=== PATIENT | male | born 1935 | race Caucasian/White ===

== ENCOUNTER 2021-01-01 09:28 | Outpatient (REF) | payer MEDICARE, MEDICAID, SELFPAY ==
[2021-01-01 10:25] LABS: Anion Gap 15 (12-20); Blood Urea Nitrogen 14 mg/dL (9-16); Calcium 9.5 mg/dL (8.4-10.2); Carbon Dioxide 26 mmol/L (22-29); Chloride 103 mmol/L (96-108); Estimated Glomerular Filt Rate 59; Glucose Random 138 mg/dL (60-115); Potassium 4.6 mmol/L (3.3-5.1); Sodium 139 mmol/L (135-145)
[2021-01-01 11:06] LABS: Thyroid Stimulating Hormone 0.93 uIU/mL (0.32-4.0)
[2021-01-01 11:13] LABS: Folate > 20.0 ng/mL (> or = 4.0); Vitamin B12 335 pg/mL (200-900)
[2021-01-01 11:38] LABS: T4 Thyroxine 7.4 ug/dL (4.5-12.0)
== END 2021-01-01 09:29 | disposition home or self-care (01) ==
LOC: HO.LAB 09:28
PROVIDERS: PCP Internal Medicine; Visit Provider Psychiatry & Neurology Neurology
DX: G30.9 Alzheimer's disease, unspecified (principal)
CPT/HCPCS: 36415; 80048; 82607; 82746; 84436; 84443

== ENCOUNTER 2021-01-19 08:32 | Outpatient (REF) | payer MEDICARE, MEDICAID, SELFPAY ==
--- NOTE | ~2021-01-19 | CT_ITS ---
EXAMINATION: CT HEAD WITHOUT CONTRAST CLINICAL INFORMATION: Alzheimer's disease and stroke COMPARISON: None TECHNIQUE: Contiguous axial imaging was performed from the skull base to vertex without intravenous administration of contrast. This CT examination was performed using dose optimization techniques as appropriate, variously including the following: *Automated exposure control *Adjustment of mA and/or kV according to patient size (this includes techniques or standardized protocols for targeted exams where dose is matched to indication/reason for exam; i.e. extremities or head) *Use of iterative reconstruction technique DLP: 74 mGy-cm FINDINGS: There is no evidence of an extra-axial collection. There is no evidence of intra-axial or extra-axial hemorrhage. The ventricles and extra-axial CSF spaces are prominent suggestive of atrophy, particularly in the frontal, temporal and parietal lobes. There is nonspecific periventricular white matter disease. No mass, mass effect or infarct is seen. Review at bone windows is normal. There are inflammatory changes seen in the ethmoid and frontal sinuses. CT/CT head/brain wo con IMPRESSION: Atrophy and nonspecific periventricular white matter disease.
== END 2021-01-19 08:33 | disposition home or self-care (01) ==
LOC: HO.CT 08:32
PROVIDERS: Visit Provider Psychiatry & Neurology Neurology
DX: G30.9 Alzheimer's disease, unspecified (principal); I63.9 Cerebral infarction, unspecified
CPT/HCPCS: 70450

== ENCOUNTER 2021-07-11 16:32 | Inpatient (IN) | payer MEDICARE, MEDICAID, SELFPAY ==
[2021-07-11 16:56] VITALS: BP 169/79; PULSE 77; RESP 16; TEMP 36.4; O2SAT 94
[2021-07-11 17:24] LABS: Glucose, Whole Blood 155 mg/dL (60-115)
[2021-07-11 18:26] VITALS: BMI 22.4
--- NOTE | 2021-07-11 18:29 | PC.ADMIT ---
Addendum entered by Sadia Gilmore RN 07/11/21 19:04: patient appears stable. No distress noted or reported Original Note: Patient is an 85 year old male who arrived to the unit at 16:45 as direct transfer from [facility] via ambulance with diagnosis of F33.2 MDD. Patient on CV. Per care team report, patient's daughter had called 911 w/ stating patient had been reporting suicidal ideation with plan to overdose on prescription meds of walk into traffic and had requested his daughter drives him to a bridge. Patient's daughter stated patient has been experiencing increased aggression and not tending to ADLs, and that patient reported poor sleep, appetite and mood. Daughter also reported a rapid decline in patient's overall health over the last month. Per care team and daughter, patient has a history of suicidal attempt by hanging. Patient also has history of PTSD, MDD, Dementia and Major Neurocognitive Disorder due to probable Alzheimer's Disease with behavioral disturbance. Per daughter, patient was recently diagnosed with Dementia and undergone some tests. Patient has past medical history of PE on eliquis, T2DM, HTN, HLD. Per patient's daughter, [facility] Patient is A+O X2, calm, cooperative and pleasant on approach. Patient lacks insight to situation and unaware of time and place. Patient appears confused at times as evidenced by patient constantly asking whereabouts of his wallets even though he had been informed more than ones. Patient appears neat, mood is cheerful and relaxed. Patient reports wearing dentures and glasses at baseline. Skin is intact and appropriate for age and race. patient ambulates with cane at baseline; however does not have it here.
[2021-07-11 19:30] VITALS: BP 137/83; PULSE 95; RESP 17; TEMP 36.4; O2SAT 97
[2021-07-11] MEDS: traZODone HCL 50 MG TABLET PO (20:51)
[2021-07-12 07:00] VITALS: BP 113/68; PULSE 88; RESP 18; TEMP 36.3; O2SAT 97; BMI 22.4
[2021-07-12 07:59] LABS: Glucose, Whole Blood 203 mg/dL (60-115)
[2021-07-12 11:40] LABS: Glucose, Whole Blood 135 mg/dL (60-115)
--- NOTE | 2021-07-12 13:29 | HO.PSYADMNOT ---
HPI Date of Service: 07/12/21 Chief Complaint: mdd recurrent episode severe, major neurocognitive Sources of Information: patient interviewed, chart reviewed and crisis/core team assessment reviewed Additional Sources of Information: the patient is an 85-year-old Mosotho male, with a were, father of 3 adult children, currently living on his own place with the help of his family, retired with good social support. The patient was brought to the emergency room since her daughter reported the patient was suicidal. The patient carries a diagnosis of dementia Alzheimer's type and he has suffer from depression for several years. According to the chart, her daughter reported suicidal ideation by either walking into traffic or Overdosing on prescription medications. According to the crisis report, the patient was unable to contract for safety so he was transferring to this facility for psychiatric stabilization. On interview, the patient admitted a long history of depression, he stated that he lost his 4 years ago and since then he has been sad and depressed. He reported family stressors, apparently 1 of his daughters who lives in [place] is going to have a surgery and he was very concerned about in her health. Also, he he reported financial constraints and he had an argument with his daughter regarding money. He denies physical violence and he stated that he can be very loud he is very angry. According to the nursing staff, the patient was very confused at night he was walking into other's patient's room and he could sleep. He denies auditory hallucinations or paranoia HPI Subjective Notes: Cavanaugh Warning and Conditional Voluntary Past Psychiatric History: the patient denies prior psychiatric contact but according to the chart the patient tried to kill himself by hanging several years ago. He denies substance abuse he states that he receive his care by the PA. Medical Evaluation Reviewed: Hospitalist Darnell Pending [facility] Narrative: HTN. Diabetes type 2 Family History: denies Social History: the patient's support Rican male, current with a were with good social support. He is a and he receive check by the PA and social security. Substance History: Denies Trauma History: denies Diagnostics Vital Signs (24Hr): Vital Signs - 24 hr 07/11/21 16:56 07/11/21 19:30 07/12/21 07:00 Temperature 97.5 F 97.5 F 97.3 F Pulse Rate 77 95 88 Respiratory Rate 16 17 18 Blood Pressure 169/79 H 137/83 113/68 Pulse Oximetry 94 97 97 BMI result Body Mass Index 22.4 Labs Labs: Laboratory Results - last 48 hr 07/11/21 07/12/21 07/12/21 17:18 07:53 11:33 POC Glucose 155 H 203 H 135 H Meds/Allergies Meds Home Medications Acetaminophen (Acetaminophen 325 Mg Tablet) 650 mg PO Q6H PRN PRN Reason: Headache/Pain Mild Scale (1-3) Al Hydroxide/Mg Hydroxide (Magnesium Hydrox/Alum Hydrox 30 Ml Oral.Susp) 30 ml PO Q6H PRN PRN Reason: Heartburn/Nausea Hydroxyzine HCl (Hydroxyzine Hcl 25 Mg Tablet) 25 mg PO BEDTIME PRN PRN Reason: Anxiety Magnesium Hydroxide (Milk Of Magnesia 30 Ml Oral.Susp) 30 ml PO DAILY PRN PRN Reason: Constipation Trazodone HCl (Trazodone Hcl 50 Mg Tablet) 50 mg PO BEDTIME PRN PRN Reason: Insomnia Last Admin: 07/11/21 20:51 Dose: 50 mg Documented by: Allergies Allergies Allergy/AdvReac Type Severity Reaction Status Date / Time No Known Allergies Allergy Unverified 11/18/19 14:37 Mental Status Exam Mental Status Exam Patient Appearance: Appropriate Patient Orientation: Person and Situation Level of Consciousness: Awake Patient Behavior: Appropriate Mood Description: Withdrawn Affect Description: Constricted Patient Cognition Impaired: Yes Ability to Follow Directions: Good Speech Pattern: Clear Hallucinations: None Delusions: Not Present Thought Process: Linear and Evasive Thought Content: positive for Poverty of Content Judgement: Fair Assessment & Plan Assessment & Plan (1) Major depressive disorder: Status: Acute Code(s): F32.9 - Major depressive disorder, single episode, unspecified (2) Dementia: Status: Acute Code(s): F03.90 - Unspecified dementia without behavioral disturbance Plan elderly Mosotho male with a long history of depression and dementia was admitted into the hospital for exacerbation of depression in the context of financial constraints and other psychosocial stressors. The patient has a past history of trying to kill himself by hanging. Plan 1. Gather collateral information. 2. Continue regular medications. 3. Start Remeron 7.5 mg p.o. q.h.s. to target Patient educated on: diagnosis Informed Consent: understands Reason for continued inpatient stay Substantial Risk for: inability to function, rapid decompensation and med/psych decompensation
[2021-07-12 18:00] VITALS: BP 124/66; PULSE 63; RESP 19; TEMP 36.2; O2SAT 97
[2021-07-12] MEDS: Memantine HCl 5 MG TABLET PO (20:15)
[2021-07-12] MEDS: Melatonin 3 MG TABLET PO (20:15)
[2021-07-12] MEDS: Mirtazapine 30 MG TABLET PO (20:15)
[2021-07-12] MEDS: Apixaban 5 MG TABLET PO (20:15)
[2021-07-12] MEDS: Donepezil HCl 10 MG TABLET PO (20:18)
[2021-07-13 07:22] LABS: MANUAL DIFF FLAG NO
[2021-07-13 07:26] LABS: Basophils Percent Auto 0.4 % (0-2); Eosinophils Absolute Auto 0.1 X10*3/uL (0.0-0.4); Eosinophils Percent Auto 2.2 % (0-4); Hematocrit 35.1 % (42.0-52.0); Hemoglobin 11.4 g/dl (14.0-18.0); Imm Gran Abs Auto 0.01 X10*3/uL (0.00-0.03); Imm Gran Pct Auto 0.2 % (0.0-0.4); Lymphocytes Absolute Auto 2.1 X10*3/uL (1.2-4.9); Lymphocytes Percent Auto 43.2 % (20-40); Mean Corpuscular HGB Conc 32.5 g/dl (31.0-36.0); Mean Corpuscular Hemoglobin 26.8 pg (27.0-33.0); Mean Corpuscular Volume 82.4 fL (80.0-98.0); Monocytes Absolute Auto 0.5 X10*3/uL (0.1-1.2); Monocytes Percent Auto 9.1 % (2-11); Neutrophils Absolute Auto 2.2 x10*3/uL (2.0-8.3); Neutrophils Percent Auto 44.9 % (45-73); Platelet Count 188 X10*3/uL (160-400); Red Blood Count 4.26 X10*6/uL (4.60-5.80); Red Cell Distribution Width 13.4 % (11.0-16.0); White Blood Count 4.9 X10*3/uL (4.8-10.8)
[2021-07-13 07:41] LABS: Alanine Aminotransferase 43 U/L (0-40); Albumin Level 3.9 g/dL (3.5-5.0); Alkaline Phosphatase 58 U/L (39-117); Anion Gap 12 (12-20); Aspartate Amino Transferase 42 U/L (5-37); Bilirubin Direct 0.6 mg/dL (0.0-0.5); Bilirubin Total 1.4 mg/dL (0.0-1.0); Blood Urea Nitrogen 22 mg/dL (9-16); Calcium 9.4 mg/dL (8.4-10.2); Carbon Dioxide 26 mmol/L (22-29); Chloride 104 mmol/L (96-108); Cholesterol 123 mg/dL; Creatinine Clr Calc Pharmacy 41.6; Estimated Glomerular Filt Rate > 60; Glucose Random 153 mg/dL (60-115); HDL Cholesterol 39 mg/dL; LDL Cholesterol Calculated 66 mg/dl; Sodium 138 mmol/L (135-145); Total Protein 6.7 g/dL (6.5-8.0); Triglycerides 93 mg/dL
[2021-07-13 07:43] LABS: Estimated Average Glucose 148 mg/dL; Hemoglobin A1c % 6.8 %
[2021-07-13 08:00] VITALS: BP 123/74; PULSE 77; RESP 16; TEMP 36.8; O2SAT 100
[2021-07-13 08:02] LABS: Thyroid Stimulating Hormone 0.42 uIU/mL (0.32-4.0)
[2021-07-13 08:17] LABS: Glucose, Whole Blood 160 mg/dL (60-115)
[2021-07-13] MEDS: Insulin Glargine,Hum.rec.anlog 100 UNIT/ML 10 ML VIAL 16 UNIT SUBCUT (08:17)
[2021-07-13] MEDS: Lidocaine 4 % Patch ADH..PATCH 1 PATCH TRANSDERMA (08:18)
[2021-07-13] MEDS: metFORMIN HCl 1,000 MG TABLET 1000 MG PO (08:19)
[2021-07-13] MEDS: Atorvastatin Calcium 40 MG TABLET PO (08:19)
[2021-07-13] MEDS: Apixaban 5 MG TABLET PO ×2 (08:19→20:13)
[2021-07-13] MEDS: Isosorbide Mononitrate 30 MG TAB.ER.24H PO (08:19)
[2021-07-13] MEDS: Memantine HCl 5 MG TABLET PO (08:19)
[2021-07-13] MEDS: Multivitamin TABLET 1 TAB PO (08:19)
[2021-07-13] MEDS: lisinopriL 20 MG TABLET PO (08:19)
--- NOTE | 2021-07-13 10:53 | P.PNPSI_ITS ---
Subjective Subjective Date of Service: 07/13/21 Reason For Visit: mdd recurrent episode severe, major neurocognitive Subjective Notes: Conditional Voluntary Interim History: The nursing staff reported the patient has been obsessed about getting his wallet back. The staff reported that he was very dramatic is stating that he will kill himself. He has been fully compliant with medications cooperative. The social work instructor will make contact with the family, we are scheduling a family meeting for early next week. On interview the patient denies new symptoms he stated he wants his property I tried to explain him in Slovak why we cannot give him his valuable property in the unit. he is pleasant and cooperative, tearful at times Mental Status Exam Mental Status Exam Patient Appearance: Appropriate Patient Orientation: Person Level of Consciousness: Awake Patient Behavior: Guarded and Passive Mood Description: Withdrawn Affect Description: Constricted Patient Cognition Impaired: Yes Ability to Follow Directions: Good Speech Pattern: Clear Hallucinations: None Delusions: Not Present Thought Process: Distracted and Slowed Thinking Thought Content: positive for [place], positive for Poverty of Content and positive for Loose Associations Judgement: Fair Diagnostics Vital Signs (24Hr): Vital Signs - 24 hr 07/12/21 18:00 07/13/21 08:00 Temperature 97.1 F 98.2 F Pulse Rate 63 77 Respiratory Rate 19 16 Blood Pressure 124/66 123/74 Pulse Oximetry 97 100 BMI result Body Mass Index 22.4 Labs Results: 07/13/21 07:18 07/13/21 07:18 Labs: Laboratory Results - last 48 hr 07/11/21 07/12/21 07/12/21 17:18 07:53 11:33 WBC RBC Hgb Hct MCV MCH MCHC RDW Plt Count MPV Immature Gran % (Auto) Neut % (Auto) Lymph % (Auto) Calloway % (Auto) Eos % (Auto) Baso % (Auto) Lymph # (Auto) Calloway # (Auto) Eos # (Auto) Baso # (Auto) Abs Immat Gran (auto) Absolute Neuts (auto) Absolute Nucleated RBC Nucleated RBC % (auto) Sodium Potassium Chloride Carbon Dioxide Anion Gap BUN Creatinine Estim Creat Clear Calc Estimated GFR POC Glucose 155 H 203 H 135 H Random Glucose Estimat Average Glucose Hemoglobin A1c % Calcium Total Bilirubin Direct Bilirubin AST ALT Alkaline Phosphatase Total Protein Albumin Triglycerides Cholesterol LDL Cholesterol, Calc HDL Cholesterol TSH 07/13/21 07/13/21 07/13/21 07:18 07:18 07:18 WBC 4.9 RBC 4.26 L Hgb 11.4 L Hct 35.1 L MCV 82.4 MCH 26.8 L MCHC 32.5 RDW 13.4 Plt Count 188 MPV 9.0 L Immature Gran % (Auto) 0.2 Neut % (Auto) 44.9 L Lymph % (Auto) 43.2 H Calloway % (Auto) 9.1 Eos % (Auto) 2.2 Baso % (Auto) 0.4 Lymph # (Auto) 2.1 Calloway # (Auto) 0.5 Eos # (Auto) 0.1 Baso # (Auto) 0.0 Abs Immat Gran (auto) 0.01 Absolute Neuts (auto) 2.2 Absolute Nucleated RBC 0.000 Nucleated RBC % (auto) 0.0 Sodium 138 Potassium 4.0 Chloride 104 Carbon Dioxide 26 Anion Gap 12 BUN 22 H Creatinine 1.16 Estim Creat Clear Calc 41.6 Estimated GFR > 60 POC Glucose Random Glucose 153 H Estimat Average Glucose 148 Hemoglobin A1c % 6.8 Calcium 9.4 Total Bilirubin 1.4 H Direct Bilirubin 0.6 H AST 42 H ALT 43 H Alkaline Phosphatase 58 Total Protein 6.7 Albumin 3.9 Triglycerides 93 Cholesterol 123 LDL Cholesterol, Calc 66 HDL Cholesterol 39 TSH 0.42 07/13/21 08:12 WBC RBC Hgb Hct MCV MCH MCHC RDW Plt Count MPV Immature Gran % (Auto) Neut % (Auto) Lymph % (Auto) Calloway % (Auto) Eos % (Auto) Baso % (Auto) Lymph # (Auto) C[place]ay # (Auto) Eos # (Auto) Baso # (Auto) Abs Immat Gran (auto) Absolute Neuts (auto) Absolute Nucleated RBC Nucleated RBC % (auto) Sodium Potassium Chloride Carbon Dioxide Anion Gap BUN Creatinine Estim Creat Clear Calc Estimated GFR POC Glucose 160 H Random Glucose Estimat Average Glucose Hemoglobin A1c % Calcium Total Bilirubin Direct Bilirubin AST ALT Alkaline Phosphatase Total Protein Albumin Triglycerides Cholesterol LDL Cholesterol, Calc HDL Cholesterol TSH Medications Medications Current Medications Acetaminophen (Acetaminophen 325 Mg Tablet) 650 mg PO Q6H PRN PRN Reason: Headache/Pain Mild Scale (1-3) Al Hydroxide/Mg Hydroxide (Magnesium Hydrox/Alum Hydrox 30 Ml Oral.Susp) 30 ml PO Q6H PRN PRN Reason: Heartburn/Nausea Apixaban (Apixaban 5 Mg Tablet) 5 mg PO BID [facility] Last Admin: 07/13/21 08:19 Dose: 5 mg Documented by: Atorvastatin Calcium (Atorvastatin Calcium 40 Mg Tablet) 40 mg PO DAILY [facility] Last Admin: 07/13/21 08:19 Dose: 40 mg Documented by: Donepezil HCl (Donepezil Hcl 10 Mg Tablet) 10 mg PO BEDTIME [facility] Last Admin: 07/12/21 20:18 Dose: 10 mg Documented by: Hydroxyzine HCl (Hydroxyzine Hcl 25 Mg Tablet) 25 mg PO BEDTIME PRN PRN Reason: Anxiety Insulin Glargine (Insulin Glargine,Hum.Rec.Anlog 100 Unit/Ml 10 Ml Vial) 16 unit SUBCUT DAILY [facility] Last Admin: 07/13/21 08:17 Dose: 16 unit Documented by: Isosorbide Mononitrate (Isosorbide Mononitrate 30 Mg Tab.Er.24h) 30 mg PO DAILY [facility] Last Admin: 07/13/21 08:19 Dose: 30 mg Documented by: Lidocaine (Lidocaine 4 % Patch Adh..Patch) 1 patch TRANSDERMA DAILY [facility] Last Admin: 07/13/21 08:18 Dose: 1 patch Documented by: Lisinopril (Lisinopril 20 Mg Tablet) 20 mg PO DAILY [facility] Last Admin: 07/13/21 08:19 Dose: 20 mg Documented by: Magnesium Hydroxide (Milk Of Magnesia 30 Ml Oral.Susp) 30 ml PO DAILY PRN PRN Reason: Constipation Melatonin (Melatonin 3 Mg Tablet) 3 mg PO BEDTIME [facility] Last Admin: 07/12/21 20:15 Dose: 3 mg Documented by: Memantine (Memantine Hcl 5 Mg Tablet) 5 mg PO BID [facility] Last Admin: 07/13/21 08:19 Dose: 5 mg Documented by: Metformin HCl (Metformin Hcl 1,000 Mg Tablet) 1,000 mg PO DAILY [facility] Last Admin: 07/13/21 08:19 Dose: 1,000 mg Documented by: Mirtazapine (Mirtazapine 30 Mg Tablet) 30 mg PO BEDTIME [facility] Last Admin: 07/12/21 20:15 Dose: 30 mg Documented by: Multivitamins/Vitamin C (Multivitamin Tablet) 1 tab PO DAILY [facility] Last Admin: 07/13/21 08:19 Dose: 1 tab Documented by: Trazodone HCl (Trazodone Hcl 50 Mg Tablet) 50 mg PO BEDTIME PRN PRN Reason: Insomnia Last Admin: 07/11/21 20:51 Dose: 50 mg Documented by: Allergies Allergies Allergy/AdvReac Type Severity Reaction Status Date / Time No Known Allergies Allergy Unverified 11/18/19 14:37 Assessment & Plan Assessment & Plan (1) Major depressive disorder: Status: Acute Code(s): F32.9 - Major depressive disorder, single episode, unspecified (2) Dementia: Status: Acute Code(s): F03.90 - Unspecified dementia without behavioral disturbance Plan elderly Salvadorean male with a long history of depression and dementia was admitted into the hospital for exacerbation of depression in the context of financial constraints and other psychosocial stressors. The patient has a past history of trying to kill himself by hanging. Plan 1. Gather collateral information. 2. Continue regular medications. 3. Increase Namenda I spent ___20___ minutes with the patient and/or on the patient floor today, greater than?50% of which was spent counseling/coordinating care. Reason for contiued inpatient stay Substantial Risk for: inability to function, rapid decompensation and med/psych decompensation
--- NOTE | 2021-07-13 14:49 | P.CONHOSP_ITS ---
History of Present Illness Data of Consult Service Date: 07/13/21 Primary Care Provider: Tonya Salazar MD HPI Reason for consult: Routine Medical H&P This is an 85 yo M with a PMH as outlined below who is admitted to [facility]. Due to his history of dementia, history is severe limited and hence obtained from chart review. Pt it seen and examined on the unit with stand grinder services. He requires frequent redirection and is hung up on his living situation. In regards to his medical history, he states he has DM and intraabdominal surgery previously. Otherwise answers no to other medical diagnosis. He denies any physical complaints. 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 If so, by whom?: No Do you feel safe in your current relationship?: No Current Relationship Are you made to feel afraid or neglected: No Spiritual Healthcare Practices: anabaptism Worship Healthcare Practices: patient would like visit from family coach Advance Directives: No Advance Directives Information Provided: No Do you have thoughts of harming others: None Do you have a plan to hurt others: No Plan Recently lost weight without trying: No Nutrition Risks: No Nutritional Risk Poor oral hygiene: No service: Yes ([employer], served in [employer]) Sexual orientation: Straight/Heterosexual Meds Allergies Allergy/AdvReac Type Severity Reaction Status Date / Time No Known Allergies Allergy Unverified 11/18/19 14:37 Active Medications: Current Medications Acetaminophen (Acetaminophen 325 Mg Tablet) 650 mg PO Q6H PRN PRN Reason: Headache/Pain Mild Scale (1-3) Al Hydroxide/Mg Hydroxide (Magnesium Hydrox/Alum Hydrox 30 Ml Oral.Susp) 30 ml PO Q6H PRN PRN Reason: Heartburn/Nausea Apixaban (Apixaban 5 Mg Tablet) 5 mg PO BID [facility] Last Admin: 07/13/21 08:19 Dose: 5 mg Documented by: Atorvastatin Calcium (Atorvastatin Calcium 40 Mg Tablet) 40 mg PO DAILY [facility] Last Admin: 07/13/21 08:19 Dose: 40 mg Documented by: Donepezil HCl (Donepezil Hcl 10 Mg Tablet) 10 mg PO BEDTIME [facility] Last Admin: 07/12/21 20:18 Dose: 10 mg Documented by: Hydroxyzine HCl (Hydroxyzine Hcl 25 Mg Tablet) 25 mg PO BEDTIME PRN PRN Reason: Anxiety Insulin Glargine (Insulin Glargine,Hum.Rec.Anlog 100 Unit/Ml 10 Ml Vial) 16 unit SUBCUT DAILY [facility] Last Admin: 07/13/21 08:17 Dose: 16 unit Documented by: Isosorbide Mononitrate (Isosorbide Mononitrate 30 Mg Tab.Er.24h) 30 mg PO DAILY [facility] Last Admin: 07/13/21 08:19 Dose: 30 mg Documented by: Lidocaine (Lidocaine 4 % Patch Adh..Patch) 1 patch TRANSDERMA DAILY [facility] Last Admin: 07/13/21 08:18 Dose: 1 patch Documented by: Lisinopril (Lisinopril 20 Mg Tablet) 20 mg PO DAILY [facility] Last Admin: 07/13/21 08:19 Dose: 20 mg Documented by: Magnesium Hydroxide (Milk Of Magnesia 30 Ml Oral.Susp) 30 ml PO DAILY PRN PRN Reason: Constipation Melatonin (Melatonin 3 Mg Tablet) 3 mg PO BEDTIME [facility] Last Admin: 07/12/21 20:15 Dose: 3 mg Documented by: Memantine (Memantine Hcl 10 Mg Tablet) 10 mg PO BID [facility] Metformin HCl (Metformin Hcl 1,000 Mg Tablet) 1,000 mg PO DAILY [facility] Last Admin: 07/13/21 08:19 Dose: 1,000 mg Documented by: Mirtazapine (Mirtazapine 30 Mg Tablet) 30 mg PO BEDTIME [facility] Last Admin: 07/12/21 20:15 Dose: 30 mg Documented by: Multivitamins/Vitamin C (Multivitamin Tablet) 1 tab PO DAILY [facility] Last Admin: 07/13/21 08:19 Dose: 1 tab Documented by: Trazodone HCl (Trazodone Hcl 50 Mg Tablet) 50 mg PO BEDTIME PRN PRN Reason: Insomnia Last Admin: 07/11/21 20:51 Dose: 50 mg Documented by: Home Medications Medication Instructions Recorded Confirmed Last Taken Type donepezil 10 mg PO BEDTIME 07/11/21 07/11/21 Unknown History isosorbide mononitrate 30 mg PO DAILY 07/11/21 07/11/21 Unknown History lisinopril 20 mg PO DAILY 07/11/21 07/12/21 Unknown History melatonin 3 mg PO BEDTIME 07/11/21 07/12/21 Unknown History memantine 5 mg PO BID 07/11/21 07/11/21 Unknown History rosuvastatin 10 mg PO DAILY 07/11/21 07/11/21 Unknown History apixaban 5 mg PO BID 07/12/21 07/12/21 Unknown History insulin glargine 16 units SUBCUT DAILY 07/12/21 07/12/21 Unknown History lidocaine 5 % TRANSDERMAL USEASDIRECTD 07/12/21 07/12/21 Unknown History metformin 1,000 mg PO DAILY 07/12/21 07/12/21 Unknown History mirtazapine 30 mg PO BEDTIME 07/12/21 07/12/21 Unknown History multivitamin See Rx Instructions .ROUTE .COMPLEX 07/12/21 07/12/21 Unknown History Physical Exam Vital Signs and Narrative: Vital Signs: Last Vital Signs Temp 98.2 F 07/13/21 08:00 Pulse 77 07/13/21 08:00 Resp 16 07/13/21 08:00 BP 123/74 07/13/21 08:00 Pulse Ox 100 07/13/21 08:00 BMI result Body Mass Index 22.4 Const: Other: General - no acute distress, appears comfortable Cardiovascular - regular rate and rhythm, S1-S2 Lungs - normal respiratory effort, clear to auscultation bilaterally, no wheezing Abdomen - soft, nontender, no rebound or guarding Extremities - no edema bilaterally Neuro - awake and alert, no focal deficits; CN 2-12 intact b/l Results Labs CBC and Chem 7: 07/13/21 07:18 07/13/21 07:18 Labs: Laboratory Results - last 24 hr 07/13/21 07/13/21 07/13/21 07:18 07:18 07:18 MCV 82.4 MCH 26.8 L MCHC 32.5 RDW 13.4 Plt Count 188 MPV 9.0 L Immature Gran % (Auto) 0.2 Neut % (Auto) 44.9 L Lymph % (Auto) 43.2 H [place] % (Auto) 9.1 Eos % (Auto) 2.2 Baso % (Auto) 0.4 Lymph # (Auto) 2.1 [place] # (Auto) 0.5 Eos # (Auto) 0.1 Baso # (Auto) 0.0 Abs Immat Gran (auto) 0.01 Absolute Neuts (auto) 2.2 Absolute Nucleated RBC 0.000 Nucleated RBC % (auto) 0.0 Anion Gap 12 Estim Creat Clear Calc 41.6 Estimated GFR > 60 POC Glucose Random Glucose 153 H Estimat Average Glucose 148 Hemoglobin A1c % 6.8 Calcium 9.4 Total Bilirubin 1.4 H Direct Bilirubin 0.6 H AST 42 H ALT 43 H Alkaline Phosphatase 58 Total Protein 6.7 Albumin 3.9 Triglycerides 93 Cholesterol 123 LDL Cholesterol, Calc 66 HDL Cholesterol 39 TSH 0.42 07/13/21 08:12 MCV MCH MCHC RDW Plt Count MPV Immature Gran % (Auto) Neut % (Auto) Lymph % (Auto) [place] % (Auto) Eos % (Auto) Baso % (Auto) Lymph # (Auto) [place] # (Auto) Eos # (Auto) Baso # (Auto) Abs Immat Gran (auto) Absolute Neuts (auto) Absolute Nucleated RBC Nucleated RBC % (auto) Anion Gap Estim Creat Clear Calc Estimated GFR POC Glucose 160 H Random Glucose Estimat Average Glucose Hemoglobin A1c % Calcium Total Bilirubin Direct Bilirubin AST ALT Alkaline Phosphatase Total Protein Albumin Triglycerides Cholesterol LDL Cholesterol, Calc HDL Cholesterol TSH Assessment and Plan (1) Hyperbilirubinemia: Status: Acute Plan 85 yo with multiple medical issues admitted to [facility] unit. Medical consult requested for routine medical H&P. 1. Hyperbilirubinemia mildly elevated; [facility] records indicate normal bili on 07/10; (AST/ALT decreaseing from [facility]) repeat labs tomorrow, if rising -- may need further evaluation 2. History of PE continue Eliquis -- currently dose is okay at 5mg BID based on age/weight/renal function 3. DM continue lantus + metformin check POC 4. Alzheimer's dementia continue baseline meds 5. HTN continue meds Overall appears medically stable. Someone from the hospitalist team will look at his labs tomorrow AM. If bili stable / decreasing -- likely no further hospitalist input needed. Will sign off pending the results of labs tomorrow.
[2021-07-13 18:00] VITALS: BP 100/60; PULSE 77; RESP 18; TEMP 36.2; O2SAT 97
[2021-07-13] MEDS: Melatonin 3 MG TABLET PO (20:13)
[2021-07-13] MEDS: Memantine HCl 10 MG TABLET PO (20:13)
[2021-07-13] MEDS: Donepezil HCl 10 MG TABLET PO (20:13)
[2021-07-13] MEDS: Mirtazapine 30 MG TABLET PO (20:13)
[2021-07-14 07:50] LABS: Glucose, Whole Blood 134 mg/dL (60-115)
[2021-07-14 07:55] LABS: Alanine Aminotransferase 47 U/L (0-40); Albumin Level 4.5 g/dL (3.5-5.0); Alkaline Phosphatase 68 U/L (39-117); Aspartate Amino Transferase 48 U/L (5-37); Bilirubin Direct 0.6 mg/dL (0.0-0.5); Bilirubin Total 1.7 mg/dL (0.0-1.0); Total Protein 7.7 g/dL (6.5-8.0)
[2021-07-14 08:00] VITALS: BP 134/73; PULSE 82; RESP 18; TEMP 36.3; O2SAT 98
[2021-07-14] MEDS: Lidocaine 4 % Patch ADH..PATCH 1 PATCH TRANSDERMA (08:11)
[2021-07-14] MEDS: Atorvastatin Calcium 40 MG TABLET PO (08:12)
[2021-07-14] MEDS: metFORMIN HCl 1,000 MG TABLET 1000 MG PO (08:12)
[2021-07-14] MEDS: Apixaban 5 MG TABLET PO ×2 (08:12→20:48)
[2021-07-14] MEDS: Multivitamin TABLET 1 TAB PO (08:12)
[2021-07-14] MEDS: Insulin Glargine,Hum.rec.anlog 100 UNIT/ML 10 ML VIAL 16 UNIT SUBCUT (08:12)
[2021-07-14] MEDS: Isosorbide Mononitrate 30 MG TAB.ER.24H PO (08:12)
[2021-07-14] MEDS: Memantine HCl 10 MG TABLET PO ×2 (08:12→20:48)
[2021-07-14] MEDS: lisinopriL 20 MG TABLET PO (08:13)
--- NOTE | 2021-07-14 12:12 | HO.PSYCHPN ---
Subjective Subjective Date of Service: 07/14/21 Reason For Visit: mdd recurrent episode severe, major neurocognitive Interim History: seen with analytics director upset at having room with broken blinds, asking for transfer. informed this is being done this morning. otherwise c/o depressed mood, no other complaints or requests. per staff, demanding, confusing, wandering, pacing. depression too high. anx 7. +SI, no plan. Mental Status Exam Mental Status Exam Patient Appearance: Appropriate Patient Orientation: Person Level of Consciousness: Awake Mood Description: Withdrawn Affect Description: Constricted Patient Cognition Impaired: Yes Ability to Follow Directions: Good Speech Pattern: Clear Hallucinations: None Delusions: Not Present Thought Process: Distracted and Slowed Thinking Thought Content: positive for [place], positive for Poverty of Content and positive for Loose Associations Judgement: Fair Diagnostics Vital Signs (24Hr): Vital Signs - 24 hr 07/13/21 18:00 07/14/21 08:00 Temperature 97.1 F 97.4 F Pulse Rate 77 82 Respiratory Rate 18 18 Blood Pressure 100/60 134/73 Pulse Oximetry 97 98 BMI result Body Mass Index 22.4 Labs Results: 07/13/21 07:18 07/13/21 07:18 Labs: Laboratory Results - last 48 hr 07/13/21 07/13/21 07/13/21 07:18 07:18 07:18 WBC 4.9 RBC 4.26 L Hgb 11.4 L Hct 35.1 L MCV 82.4 MCH 26.8 L MCHC 32.5 RDW 13.4 Plt Count 188 MPV 9.0 L Immature Gran % (Auto) 0.2 Neut % (Auto) 44.9 L Lymph % (Auto) 43.2 H Phillips % (Auto) 9.1 Eos % (Auto) 2.2 Baso % (Auto) 0.4 Lymph # (Auto) 2.1 Phillips # (Auto) 0.5 Eos # (Auto) 0.1 Baso # (Auto) 0.0 Abs Immat Gran (auto) 0.01 Absolute Neuts (auto) 2.2 Absolute Nucleated RBC 0.000 Nucleated RBC % (auto) 0.0 Sodium 138 Potassium 4.0 Chloride 104 Carbon Dioxide 26 Anion Gap 12 BUN 22 H Creatinine 1.16 Estim Creat Clear Calc 41.6 Estimated GFR > 60 POC Glucose Random Glucose 153 H Estimat Average Glucose 148 Hemoglobin A1c % 6.8 Calcium 9.4 Total Bilirubin 1.4 H Direct Bilirubin 0.6 H AST 42 H ALT 43 H Alkaline Phosphatase 58 Total Protein 6.7 Albumin 3.9 Triglycerides 93 Cholesterol 123 LDL Cholesterol, Calc 66 HDL Cholesterol 39 TSH 0.42 07/13/21 07/14/21 07/14/21 08:12 07:28 07:45 WBC RBC Hgb Hct MCV MCH MCHC RDW Plt Count MPV Immature Gran % (Auto) Neut % (Auto) Lymph % (Auto) Phillips % (Auto) Eos % (Auto) Baso % (Auto) Lymph # (Auto) Phillips # (Auto) Eos # (Auto) Baso # (Auto) Abs Immat Gran (auto) Absolute Neuts (auto) Absolute Nucleated RBC Nucleated RBC % (auto) Sodium Potassium Chloride Carbon Dioxide Anion Gap BUN Creatinine Estim Creat Clear Calc Estimated GFR POC Glucose 160 H 134 H Random Glucose Estimat Average Glucose Hemoglobin A1c % Calcium Total Bilirubin 1.7 H Direct Bilirubin 0.6 H AST 48 H ALT 47 H Alkaline Phosphatase 68 Total Protein 7.7 Albumin 4.5 Triglycerides Cholesterol LDL Cholesterol, Calc HDL Cholesterol TSH Medications Medications Current Medications Acetaminophen (Acetaminophen 325 Mg Tablet) 650 mg PO Q6H PRN PRN Reason: Headache/Pain Mild Scale (1-3) Al Hydroxide/Mg Hydroxide (Magnesium Hydrox/Alum Hydrox 30 Ml Oral.Susp) 30 ml PO Q6H PRN PRN Reason: Heartburn/Nausea Apixaban (Apixaban 5 Mg Tablet) 5 mg PO BID [facility] Last Admin: 07/14/21 08:12 Dose: 5 mg Documented by: Atorvastatin Calcium (Atorvastatin Calcium 40 Mg Tablet) 40 mg PO DAILY [facility] Last Admin: 07/14/21 08:12 Dose: 40 mg Documented by: Donepezil HCl (Donepezil Hcl 10 Mg Tablet) 10 mg PO BEDTIME [facility] Last Admin: 07/13/21 20:13 Dose: 10 mg Documented by: Hydroxyzine HCl (Hydroxyzine Hcl 25 Mg Tablet) 25 mg PO BEDTIME PRN PRN Reason: Anxiety Insulin Glargine (Insulin Glargine,Hum.Rec.Anlog 100 Unit/Ml 10 Ml Vial) 16 unit SUBCUT DAILY [facility] Last Admin: 07/14/21 08:12 Dose: 16 unit Documented by: Isosorbide Mononitrate (Isosorbide Mononitrate 30 Mg Tab.Er.24h) 30 mg PO DAILY [facility] Last Admin: 07/14/21 08:12 Dose: 30 mg Documented by: Lidocaine (Lidocaine 4 % Patch Adh..Patch) 1 patch TRANSDERMA DAILY [facility] Last Admin: 07/14/21 08:11 Dose: 1 patch Documented by: Lisinopril (Lisinopril 20 Mg Tablet) 20 mg PO DAILY [facility] Last Admin: 07/14/21 08:13 Dose: 20 mg Documented by: Magnesium Hydroxide (Milk Of Magnesia 30 Ml Oral.Susp) 30 ml PO DAILY PRN PRN Reason: Constipation Melatonin (Melatonin 3 Mg Tablet) 3 mg PO BEDTIME [facility] Last Admin: 07/13/21 20:13 Dose: 3 mg Documented by: Memantine (Memantine Hcl 10 Mg Tablet) 10 mg PO BID [facility] Last Admin: 07/14/21 08:12 Dose: 10 mg Documented by: Metformin HCl (Metformin Hcl 1,000 Mg Tablet) 1,000 mg PO DAILY [facility] Last Admin: 07/14/21 08:12 Dose: 1,000 mg Documented by: Mirtazapine (Mirtazapine 30 Mg Tablet) 30 mg PO BEDTIME [facility] Last Admin: 07/13/21 20:13 Dose: 30 mg Documented by: Multivitamins/Vitamin C (Multivitamin Tablet) 1 tab PO DAILY [facility] Last Admin: 07/14/21 08:12 Dose: 1 tab Documented by: Trazodone HCl (Trazodone Hcl 50 Mg Tablet) 50 mg PO BEDTIME PRN PRN Reason: Insomnia Last Admin: 07/11/21 20:51 Dose: 50 mg Documented by: Allergies Allergies Allergy/AdvReac Type Severity Reaction Status Date / Time No Known Allergies Allergy Unverified 11/18/19 14:37 Assessment & Plan Assessment & Plan (1) Hyperbilirubinemia: Status: Acute Code(s): E80.6 - Other disorders of bilirubin metabolism Assessment and Plan: 85 yo with multiple medical issues admitted to [facility] unit. Medical consult requested for routine medical H&P. 1. Hyperbilirubinemia mildly elevated; [facility] [place] records indicate normal bili on 07/10; (AST/ALT decreaseing from [facility]) repeat labs tomorrow, if rising -- may need further evaluation 2. History of PE continue Eliquis -- currently dose is okay at 5mg BID based on age/weight/renal function 3. DM continue lantus + metformin check POC 4. Alzheimer's dementia continue baseline meds 5. HTN continue meds Overall appears medically stable. Someone from the hospitalist team will look at his labs tomorrow AM. If bili stable / decreasing -- likely no further hospitalist input needed. Will sign off pending the results of labs tomorrow. (2) Major depressive disorder: Status: Acute Code(s): F32.9 - Major depressive disorder, single episode, unspecified (3) Dementia: Status: Acute Code(s): F03.90 - Unspecified dementia without behavioral disturbance Plan elderly [place] male with a long history of depression and dementia was admitted into the hospital for exacerbation of depression in the context of financial constraints and other psychosocial stressors.? The patient has a past history of trying to kill himself by hanging.? Plan 1. Gather collateral information.? 2.? Continue regular medications.? 3. ? Increase Namenda 4. medical to F/U re uptrending LFTs I spent ___25___ minutes with the patient and/or on the patient floor today, greater than?50% of which was spent counseling/coordinating care. Reason for contiued inpatient stay Substantial Risk for: harm to self
[2021-07-14 18:00] VITALS: BP 92/63; PULSE 63; RESP 19; TEMP 36.2; O2SAT 97
[2021-07-14] MEDS: Donepezil HCl 10 MG TABLET PO (20:48)
[2021-07-14] MEDS: Mirtazapine 30 MG TABLET PO (20:48)
[2021-07-14] MEDS: Melatonin 3 MG TABLET PO (20:48)
[2021-07-15 07:42] LABS: Alanine Aminotransferase 35 U/L (0-40); Albumin Level 4.3 g/dL (3.5-5.0); Alkaline Phosphatase 63 U/L (39-117); Aspartate Amino Transferase 36 U/L (5-37); Bilirubin Direct 0.6 mg/dL (0.0-0.5); Bilirubin Total 1.4 mg/dL (0.0-1.0); Total Protein 7.1 g/dL (6.5-8.0)
[2021-07-15 07:59] LABS: Glucose, Whole Blood 126 mg/dL (60-115)
[2021-07-15 08:00] VITALS: BP 115/61; PULSE 64; RESP 18; TEMP 36.4; O2SAT 99
[2021-07-15] MEDS: Lidocaine 4 % Patch ADH..PATCH 1 PATCH TRANSDERMA (08:20)
[2021-07-15] MEDS: Insulin Glargine,Hum.rec.anlog 100 UNIT/ML 10 ML VIAL 16 UNIT SUBCUT (08:20)
[2021-07-15] MEDS: metFORMIN HCl 1,000 MG TABLET 1000 MG PO (08:20)
[2021-07-15] MEDS: Multivitamin TABLET 1 TAB PO (08:21)
[2021-07-15] MEDS: lisinopriL 20 MG TABLET PO (08:21)
[2021-07-15] MEDS: Memantine HCl 10 MG TABLET PO ×2 (08:21→20:05)
[2021-07-15] MEDS: Atorvastatin Calcium 40 MG TABLET PO (08:21)
[2021-07-15] MEDS: Isosorbide Mononitrate 30 MG TAB.ER.24H PO (08:21)
[2021-07-15] MEDS: Apixaban 5 MG TABLET PO ×2 (08:21→20:05)
[2021-07-15] MEDS: Loperamide HCl 2 MG CAPSULE PO ×2 (10:03→15:47)
--- NOTE | 2021-07-15 10:58 | P.PNPSI_ITS ---
Subjective Subjective Date of Service: 07/15/21 Reason For Visit: mdd recurrent episode severe, major neurocognitive Interim History: pt encountered watching mass on TV late morning. calm, cooperative. no complaints aside from diarrhea. states imodium has been helpful. per staff, having diarrhea. no issues otherwise. slept well, no anxiety. Mental Status Exam Mental Status Exam Patient Appearance: Appropriate Patient Orientation: Person Level of Consciousness: Awake Mood Description: Withdrawn Affect Description: Constricted Patient Cognition Impaired: Yes Ability to Follow Directions: Good Speech Pattern: Clear Hallucinations: None Delusions: Not Present Thought Process: Distracted and Slowed Thinking Thought Content: positive for [place], positive for Poverty of Content and positive for Loose Associations Judgement: Fair Diagnostics Vital Signs (24Hr): Vital Signs - 24 hr 07/14/21 18:00 Temperature 97.1 F Pulse Rate 63 Respiratory Rate 19 Blood Pressure 92/63 Pulse Oximetry 97 BMI result Body Mass Index 22.4 Labs Results: 07/13/21 07:18 07/13/21 07:18 Labs: Laboratory Results - last 48 hr 07/14/21 07/14/21 07/15/21 07:28 07:45 07:10 POC Glucose 134 H Total Bilirubin 1.7 H 1.4 H Direct Bilirubin 0.6 H 0.6 H AST 48 H 36 ALT 47 H 35 Alkaline Phosphatase 68 63 Total Protein 7.7 7.1 Albumin 4.5 4.3 07/15/21 07:54 POC Glucose 126 H Total Bilirubin Direct Bilirubin AST ALT Alkaline Phosphatase Total Protein Albumin Medications Medications Current Medications Acetaminophen (Acetaminophen 325 Mg Tablet) 650 mg PO Q6H PRN PRN Reason: Headache/Pain Mild Scale (1-3) Al Hydroxide/Mg Hydroxide (Magnesium Hydrox/Alum Hydrox 30 Ml Oral.Susp) 30 ml PO Q6H PRN PRN Reason: Heartburn/Nausea Apixaban (Apixaban 5 Mg Tablet) 5 mg PO BID [facility] Last Admin: 07/15/21 08:21 Dose: 5 mg Documented by: Atorvastatin Calcium (Atorvastatin Calcium 40 Mg Tablet) 40 mg PO DAILY [facility] Last Admin: 07/15/21 08:21 Dose: 40 mg Documented by: Donepezil HCl (Donepezil Hcl 10 Mg Tablet) 10 mg PO BEDTIME [facility] Last Admin: 07/14/21 20:48 Dose: 10 mg Documented by: Hydroxyzine HCl (Hydroxyzine Hcl 25 Mg Tablet) 25 mg PO BEDTIME PRN PRN Reason: Anxiety Insulin Glargine (Insulin Glargine,Hum.Rec.Anlog 100 Unit/Ml 10 Ml Vial) 16 unit SUBCUT DAILY [facility] Last Admin: 07/15/21 08:20 Dose: 16 unit Documented by: Isosorbide Mononitrate (Isosorbide Mononitrate 30 Mg Tab.Er.24h) 30 mg PO DAILY [facility] Last Admin: 07/15/21 08:21 Dose: 30 mg Documented by: Lidocaine (Lidocaine 4 % Patch Adh..Patch) 1 patch TRANSDERMA DAILY [facility] Last Admin: 07/15/21 08:20 Dose: 1 patch Documented by: Lisinopril (Lisinopril 20 Mg Tablet) 20 mg PO DAILY [facility] Last Admin: 07/15/21 08:21 Dose: 20 mg Documented by: Loperamide HCl (Loperamide Hcl 2 Mg Capsule) 2 mg PO Q6H PRN PRN Reason: Diarrhea Last Admin: 07/15/21 10:03 Dose: 2 mg Documented by: Magnesium Hydroxide (Milk Of Magnesia 30 Ml Oral.Susp) 30 ml PO DAILY PRN PRN Reason: Constipation Melatonin (Melatonin 3 Mg Tablet) 3 mg PO BEDTIME [facility] Last Admin: 07/14/21 20:48 Dose: 3 mg Documented by: Memantine (Memantine Hcl 10 Mg Tablet) 10 mg PO BID [facility] Last Admin: 07/15/21 08:21 Dose: 10 mg Documented by: Metformin HCl (Metformin Hcl 1,000 Mg Tablet) 1,000 mg PO DAILY [facility] Last Admin: 07/15/21 08:20 Dose: 1,000 mg Documented by: Mirtazapine (Mirtazapine 30 Mg Tablet) 30 mg PO BEDTIME [facility] Last Admin: 07/14/21 20:48 Dose: 30 mg Documented by: Multivitamins/Vitamin C (Multivitamin Tablet) 1 tab PO DAILY [facility] Last Admin: 07/15/21 08:21 Dose: 1 tab Documented by: Trazodone HCl (Trazodone Hcl 50 Mg Tablet) 50 mg PO BEDTIME PRN PRN Reason: Insomnia Last Admin: 07/11/21 20:51 Dose: 50 mg Documented by: Allergies Allergies Allergy/AdvReac Type Severity Reaction Status Date / Time No Known Allergies Allergy Unverified 11/18/19 14:37 Assessment & Plan Assessment & Plan (1) Hyperbilirubinemia: Status: Acute Code(s): E80.6 - Other disorders of bilirubin metabolism Assessment and Plan: 85 yo with multiple medical issues admitted to [facility] unit. Medical consult requested for routine medical H&P. 1. Hyperbilirubinemia mildly elevated; [facility] records indicate normal bili on 07/10; (AST/ALT decreaseing from [facility]) repeat labs tomorrow, if rising -- may need further evaluation 2. History of PE continue Eliquis -- currently dose is okay at 5mg BID based on age/weight/renal function 3. DM continue lantus + metformin check POC 4. Alzheimer's dementia continue baseline meds 5. HTN continue meds Overall appears medically stable. Someone from the hospitalist team will look at his labs tomorrow AM. If bili stable / decreasing -- likely no further ho spitalist input needed. Will sign off pending the results of labs tomorrow. (2) Major depressive disorder: Status: Acute Code(s): F32.9 - Major depressive disorder, single episode, unspecified (3) Dementia: Status: Acute Code(s): F03.90 - Unspecified dementia without behavioral disturbance Plan elderly [place] male with a long history of depression and dementia was admitted into the hospital for exacerbation of depression in the context of financial constraints and other psychosocial stressors.? The patient has a past history of trying to kill himself by hanging.? Plan 1. Gather collateral information.? 2.? Continue regular medications.? 3. ? Increase Namenda 4. medical to F/U re uptrending LFTs I spent ___15___ minutes with the patient and/or on the patient floor today, greater than?50% of which was spent counseling/coordinating care. Reason for contiued inpatient stay Substantial Risk for: inability to function and rapid decompensation
[2021-07-15 18:00] VITALS: BP 122/62; PULSE 65; RESP 18; TEMP 35.9; O2SAT 99
[2021-07-15] MEDS: Mirtazapine 30 MG TABLET PO (20:05)
[2021-07-15] MEDS: Donepezil HCl 10 MG TABLET PO (20:05)
[2021-07-15] MEDS: Melatonin 3 MG TABLET PO (20:05)
[2021-07-16 07:30] VITALS: BP 116/54; PULSE 66; RESP 16; TEMP 36.3; O2SAT 97
[2021-07-16 07:50] LABS: Glucose, Whole Blood 173 mg/dL (60-115)
[2021-07-16] MEDS: metFORMIN HCl 1,000 MG TABLET 1000 MG PO (08:16)
[2021-07-16] MEDS: Atorvastatin Calcium 40 MG TABLET PO (08:16)
[2021-07-16] MEDS: Apixaban 5 MG TABLET PO ×2 (08:16→20:42)
[2021-07-16] MEDS: lisinopriL 20 MG TABLET PO (08:16)
[2021-07-16] MEDS: Memantine HCl 10 MG TABLET PO ×2 (08:16→20:42)
[2021-07-16] MEDS: Isosorbide Mononitrate 30 MG TAB.ER.24H PO (08:16)
[2021-07-16] MEDS: Multivitamin TABLET 1 TAB PO (08:16)
[2021-07-16] MEDS: Insulin Glargine,Hum.rec.anlog 100 UNIT/ML 10 ML VIAL 16 UNIT SUBCUT (08:17)
[2021-07-16] MEDS: Lidocaine 4 % Patch ADH..PATCH 1 PATCH TRANSDERMA (08:17)
--- NOTE | 2021-07-16 08:28 | HO.PSYCHPN ---
Subjective Subjective Date of Service: 07/16/21 Reason For Visit: mdd recurrent episode severe, major neurocognitive Subjective Notes: Conditional Voluntary and 3 Day Interim History: The nursing staff reported the patient signed a 3 day notice. He reported loose stools and he receive Imodium p.r.n. he denies suicidal ideation, he slept well but woke up a couple of times. On interview, the patient was pleasantly confused no new symptoms. Mental Status Exam Mental Status Exam Patient Appearance: Appropriate Patient Orientation: Person and Situation Level of Consciousness: Awake Patient Behavior: Guarded and Passive Mood Description: Withdrawn Affect Description: Constricted Patient Cognition Impaired: Yes Ability to Follow Directions: Good Speech Pattern: Clear Hallucinations: None Delusions: Not Present Thought Process: Distracted and Evasive Thought Content: positive for [place] and positive for Poverty of Content Judgement: Fair Diagnostics Vital Signs (24Hr): Vital Signs - 24 hr 07/15/21 18:00 Temperature 96.7 F L Pulse Rate 65 Respiratory Rate 18 Blood Pressure 122/62 Pulse Oximetry 99 BMI result Body Mass Index 22.4 Labs Results: 07/13/21 07:18 07/13/21 07:18 Labs: Laboratory Results - last 48 hr 07/15/21 07/15/21 07/16/21 07:10 07:54 07:45 POC Glucose 126 H 173 H Total Bilirubin 1.4 H Direct Bilirubin 0.6 H AST 36 ALT 35 Alkaline Phosphatase 63 Total Protein 7.1 Albumin 4.3 Medications Medications Current Medications Acetaminophen (Acetaminophen 325 Mg Tablet) 650 mg PO Q6H PRN PRN Reason: Headache/Pain Mild Scale (1-3) Al Hydroxide/Mg Hydroxide (Magnesium Hydrox/Alum Hydrox 30 Ml Oral.Susp) 30 ml PO Q6H PRN PRN Reason: Heartburn/Nausea Apixaban (Apixaban 5 Mg Tablet) 5 mg PO BID [facility] Last Admin: 07/16/21 08:16 Dose: 5 mg Documented by: Atorvastatin Calcium (Atorvastatin Calcium 40 Mg Tablet) 40 mg PO DAILY [facility] Last Admin: 07/16/21 08:16 Dose: 40 mg Documented by: Donepezil HCl (Donepezil Hcl 10 Mg Tablet) 10 mg PO BEDTIME [facility] Last Admin: 07/15/21 20:05 Dose: 10 mg Documented by: Hydroxyzine HCl (Hydroxyzine Hcl 25 Mg Tablet) 25 mg PO BEDTIME PRN PRN Reason: Anxiety Insulin Glargine (Insulin Glargine,Hum.Rec.Anlog 100 Unit/Ml 10 Ml Vial) 16 unit SUBCUT DAILY [facility] Last Admin: 07/16/21 08:17 Dose: 16 unit Documented by: Isosorbide Mononitrate (Isosorbide Mononitrate 30 Mg Tab.Er.24h) 30 mg PO DAILY [facility] Last Admin: 07/16/21 08:16 Dose: 30 mg Documented by: Lidocaine (Lidocaine 4 % Patch Adh..Patch) 1 patch TRANSDERMA DAILY [facility] Last Admin: 07/16/21 08:17 Dose: 1 patch Documented by: Lisinopril (Lisinopril 20 Mg Tablet) 20 mg PO DAILY [facility] Last Admin: 07/16/21 08:16 Dose: 20 mg Documented by: Loperamide HCl (Loperamide Hcl 2 Mg Capsule) 2 mg PO Q6H PRN PRN Reason: Diarrhea Last Admin: 07/15/21 15:47 Dose: 2 mg Documented by: Magnesium Hydroxide (Milk Of Magnesia 30 Ml Oral.Susp) 30 ml PO DAILY PRN PRN Reason: Constipation Melatonin (Melatonin 3 Mg Tablet) 3 mg PO BEDTIME [facility] Last Admin: 07/15/21 20:05 Dose: 3 mg Documented by: Memantine (Memantine Hcl 10 Mg Tablet) 10 mg PO BID [facility] Last Admin: 07/16/21 08:16 Dose: 10 mg Documented by: Metformin HCl (Metformin Hcl 1,000 Mg Tablet) 1,000 mg PO DAILY [facility] Last Admin: 07/16/21 08:16 Dose: 1,000 mg Documented by: Mirtazapine (Mirtazapine 30 Mg Tablet) 30 mg PO BEDTIME [facility] Last Admin: 07/15/21 20:05 Dose: 30 mg Documented by: Multivitamins/Vitamin C (Multivitamin Tablet) 1 tab PO DAILY [facility] Last Admin: 07/16/21 08:16 Dose: 1 tab Documented by: Trazodone HCl (Trazodone Hcl 50 Mg Tablet) 50 mg PO BEDTIME PRN PRN Reason: Insomnia Last Admin: 07/11/21 20:51 Dose: 50 mg Documented by: Allergies Allergies Allergy/AdvReac Type Severity Reaction Status Date / Time No Known Allergies Allergy Unverified 11/18/19 14:37 Assessment & Plan Assessment & Plan (1) Hyperbilirubinemia: Status: Acute Code(s): E80.6 - Other disorders of bilirubin metabolism Assessment and Plan: 85 yo with multiple medical issues admitted to [facility] unit. Medical consult requested for routine medical H&P. 1. Hyperbilirubinemia mildly elevated; [facility] records indicate normal bili on 07/10; (AST/ALT decreaseing from [facility]) repeat labs tomorrow, if rising -- may need further evaluation 2. History of PE continue Eliquis -- currently dose is okay at 5mg BID based on age/weight/renal function 3. DM continue lantus + metformin check POC 4. Alzheimer's dementia continue baseline meds 5. HTN continue meds Overall appears medically stable. Someone from the hospitalist team will look at his labs tomorrow AM. If bili stable / decreasing -- likely no further hospitalist input needed. Will sign off pending the results of labs tomorrow. (2) Major depressive disorder: Status: Acute Code(s): F32.9 - Major depressive disorder, single episode, unspecified (3) Dementia: Status: Acute Code(s): F03.90 - Unspecified dementia without behavioral disturbance Plan elderly Citizen [place] male with a long history of depression and dementia was admitted into the hospital for exacerbation of depression in the context of financial constraints and other psychosocial stressors.? The patient has a past history of trying to kill himself by hanging.? Plan 1. Gather collateral information.? 2.? Continue regular medications.? 3. ? Increase Namenda 4. medical to F/U re uptrending LFTs I spent ___20___ minutes with the patient and/or on the patient floor today, greater than?50% of which was spent counseling/coordinating care. Reason for contiued inpatient stay Substantial Risk for: inability to function, rapid decompensation and med/psych decompensation
[2021-07-16 20:40] VITALS: BP 97/61; PULSE 78; RESP 15; TEMP 36.7; O2SAT 97
[2021-07-16] MEDS: Donepezil HCl 10 MG TABLET PO (20:42)
[2021-07-16] MEDS: Mirtazapine 30 MG TABLET PO (20:42)
[2021-07-16] MEDS: Melatonin 3 MG TABLET PO (20:43)
[2021-07-17 07:25] VITALS: BP 123/63; PULSE 65; RESP 16; TEMP 36.2; O2SAT 97
[2021-07-17 07:54] LABS: Glucose, Whole Blood 115 mg/dL (60-115)
[2021-07-17] MEDS: lisinopriL 20 MG TABLET PO (08:30)
[2021-07-17] MEDS: metFORMIN HCl 1,000 MG TABLET 1000 MG PO (08:30)
[2021-07-17] MEDS: Memantine HCl 10 MG TABLET PO ×2 (08:30→20:53)
[2021-07-17] MEDS: Apixaban 5 MG TABLET PO ×2 (08:30→20:53)
[2021-07-17] MEDS: Atorvastatin Calcium 40 MG TABLET PO (08:30)
[2021-07-17] MEDS: Multivitamin TABLET 1 TAB PO (08:30)
[2021-07-17] MEDS: Insulin Glargine,Hum.rec.anlog 100 UNIT/ML 10 ML VIAL 16 UNIT SUBCUT (08:30)
[2021-07-17] MEDS: Isosorbide Mononitrate 30 MG TAB.ER.24H PO (08:30)
--- NOTE | 2021-07-17 13:33 | P.PNPSI_ITS ---
Subjective Subjective Date of Service: 07/17/21 Reason For Visit: mdd recurrent episode severe, major neurocognitive Subjective Notes: Conditional Voluntary and 3 Day Interim History: The nursing staff reported the patient has been confused, come uncooperative and he complained of shoulder pain that is chronic. She has attended a few groups and he has been fully compliant with treatment. The doctor of the [place] called me and we coordinate care, I explained him that he is on Remeron for depression and his Huffman is very low 8/30 even though that he is fully functional. On interview the patient denies new symptoms he is confused he was asking for his wallet Review of Systems Medical Review of Systems: unchanged Review of Systems Review of Systems Yes all other systems are reviewed and are negative Mental Status Exam Mental Status Exam Patient Appearance: Appropriate Patient Orientation: Person and Situation Level of Consciousness: Awake Patient Behavior: Cooperative and Confused Mood Description: Withdrawn Affect Description: Constricted Patient Cognition Impaired: Yes Ability to Follow Directions: Good Speech Pattern: Clear Memory Description: Remote Impaired, Immediate Impaired and Recent Impaired Hallucinations: None Delusions: Not Present Thought Process: Distracted and Confusion Thought Content: positive for [place], positive for Persever[place] and positive for Poverty of Content Judgement: Fair Diagnostics Vital Signs (24Hr): Vital Signs - 24 hr 07/16/21 20:40 07/17/21 07:25 Temperature 98.0 F 97.1 F Pulse Rate 78 65 Respiratory Rate 15 16 Blood Pressure 97/61 123/63 Pulse Oximetry 97 97 BMI result Body Mass Index 22.4 Labs Results: 07/13/21 07:18 07/13/21 07:18 Labs: Laboratory Results - last 48 hr 07/16/21 07/17/21 07:45 07:45 POC Glucose 173 H 115 Medications Medications Current Medications Acetaminophen (Acetaminophen 325 Mg Tablet) 650 mg PO Q6H PRN PRN Reason: Headache/Pain Mild Scale (1-3) Al Hydroxide/Mg Hydroxide (Magnesium Hydrox/Alum Hydrox 30 Ml Oral.Susp) 30 ml PO Q6H PRN PRN Reason: Heartburn/Nausea Apixaban (Apixaban 5 Mg Tablet) 5 mg PO BID [facility] Last Admin: 07/17/21 08:30 Dose: 5 mg Documented by: Atorvastatin Calcium (Atorvastatin Calcium 40 Mg Tablet) 40 mg PO DAILY [facility] Last Admin: 07/17/21 08:30 Dose: 40 mg Documented by: Donepezil HCl (Donepezil Hcl 10 Mg Tablet) 10 mg PO BEDTIME [facility] Last Admin: 07/16/21 20:42 Dose: 10 mg Documented by: Hydroxyzine HCl (Hydroxyzine Hcl 25 Mg Tablet) 25 mg PO BEDTIME PRN PRN Reason: Anxiety Insulin Glargine (Insulin Glargine,Hum.Rec.Anlog 100 Unit/Ml 10 Ml Vial) 16 unit SUBCUT DAILY [facility] Last Admin: 07/17/21 08:30 Dose: 16 unit Documented by: Isosorbide Mononitrate (Isosorbide Mononitrate 30 Mg Tab.Er.24h) 30 mg PO DAILY [facility] Last Admin: 07/17/21 08:30 Dose: 30 mg Documented by: Lidocaine (Lidocaine 4 % Patch Adh..Patch) 1 patch TRANSDERMA DAILY [facility] Last Admin: 07/17/21 08:35 Dose: Not Given Documented by: Lisinopril (Lisinopril 20 Mg Tablet) 20 mg PO DAILY [facility] Last Admin: 07/17/21 08:30 Dose: 20 mg Documented by: Loperamide HCl (Loperamide Hcl 2 Mg Capsule) 2 mg PO Q6H PRN PRN Reason: Diarrhea Last Admin: 07/15/21 15:47 Dose: 2 mg Documented by: Magnesium Hydroxide (Milk Of Magnesia 30 Ml Oral.Susp) 30 ml PO DAILY PRN PRN Reason: Constipation Melatonin (Melatonin 3 Mg Tablet) 3 mg PO BEDTIME [facility] Last Admin: 07/16/21 20:43 Dose: 3 mg Documented by: Memantine (Memantine Hcl 10 Mg Tablet) 10 mg PO BID [facility] Last Admin: 07/17/21 08:30 Dose: 10 mg Documented by: Metformin HCl (Metformin Hcl 1,000 Mg Tablet) 1,000 mg PO DAILY [facility] Last Admin: 07/17/21 08:30 Dose: 1,000 mg Documented by: Mirtazapine (Mirtazapine 30 Mg Tablet) 30 mg PO BEDTIME [facility] Last Admin: 07/16/21 20:42 Dose: 30 mg Documented by: Multivitamins/Vitamin C (Multivitamin Tablet) 1 tab PO DAILY [facility] Last Admin: 07/17/21 08:30 Dose: 1 tab Documented by: Trazodone HCl (Trazodone Hcl 50 Mg Tablet) 50 mg PO BEDTIME PRN PRN Reason: Insomnia Last Admin: 07/11/21 20:51 Dose: 50 mg Documented by: Allergies Allergies Allergy/AdvReac Type Severity Reaction Status Date / Time No Known Allergies Allergy Unverified 11/18/19 14:37 Assessment & Plan Assessment & Plan (1) Hyperbilirubinemia: Status: Acute Code(s): E80.6 - Other disorders of bilirubin metabolism Assessment and Plan: 85 yo with multiple medical issues admitted to [facility]. Medical consult requested for routine medical H&P. 1. Hyperbilirubinemia mildly elevated; [facility] records indicate normal bili on 07/10; (AST/ALT decreaseing from [facility]) repeat labs tomorrow, if rising -- may need further evaluation 2. History of PE continue Eliquis -- currently dose is okay at 5mg BID based on age/weight/renal function 3. DM continue lantus + metformin check POC 4. Alzheimer's dementia continue baseline meds 5. HTN continue meds Overall appears medically stable. Someone from the hospitalist team will look at his labs tomorrow AM. If bili stable / decreasing -- likely no further hospitalist input needed. Will sign off pending the results of labs tomorrow. (2) Major depressive disorder: Status: Acute Code(s): F32.9 - Major depressive disorder, single episode, unspecified (3) Dementia: Status: Acute Code(s): F03.90 - Unspecified dementia without behavioral disturbance Plan elderly [place]ik male with a long history of depression and dementia was admitted into the hospital for exacerbation of depression in the context of financial constraints and other psychosocial stressors.? The patient has a past history of trying to kill himself by hanging.? Plan 1. Gather collateral information.? 2.? Continue regular medications.? 3. ? Increase Namenda 4. medical to F/U re uptrending LFTs I spent __20____ minutes with the patient and/or on the patient floor today, greater than?50% of which was spent counseling/coordinating care. Reason for contiued inpatient stay Substantial Risk for: inability to function, rapid decompensation and med/psych decompensation
[2021-07-17 18:00] VITALS: BP 113/76; PULSE 83; TEMP 36.3; O2SAT 96
[2021-07-17] MEDS: Melatonin 3 MG TABLET PO (20:53)
[2021-07-17] MEDS: Mirtazapine 30 MG TABLET PO (20:53)
[2021-07-17] MEDS: Donepezil HCl 10 MG TABLET PO (20:53)
[2021-07-17] MEDS: traZODone HCL 50 MG TABLET PO (21:29)
[2021-07-18 07:50] VITALS: BP 120/71; PULSE 80; RESP 18; TEMP 36; O2SAT 96
[2021-07-18 08:05] LABS: Glucose, Whole Blood 85 mg/dL (60-115)
[2021-07-18] MEDS: lisinopriL 20 MG TABLET PO (08:43)
[2021-07-18] MEDS: Atorvastatin Calcium 40 MG TABLET PO (08:44)
[2021-07-18] MEDS: Multivitamin TABLET 1 TAB PO (08:44)
[2021-07-18] MEDS: Memantine HCl 10 MG TABLET PO (08:44)
[2021-07-18] MEDS: Isosorbide Mononitrate 30 MG TAB.ER.24H PO (08:44)
[2021-07-18] MEDS: Apixaban 5 MG TABLET PO (08:44)
[2021-07-18] MEDS: Insulin Glargine,Hum.rec.anlog 100 UNIT/ML 10 ML VIAL 16 UNIT SUBCUT (08:45)
[2021-07-18] MEDS: metFORMIN HCl 1,000 MG TABLET 1000 MG PO (08:47)
--- NOTE | 2021-07-18 11:08 | PM.PSYDC ---
DS: Providers Provider Date of Service: 07/18/21 Date of admission: 07/11/21 16:32 Date of discharge: 07/18/21 Primary care physician: Tonya Salazar MD Consults: 07/11/21 14:53 Consult to Hospitalist Routine Consulting Provider: Hospitalist Reason For Exam: Admitted to [facility] DS: Diagnosis Discharge Diagnosis (1) Hyperbilirubinemia: Status: Acute (2) Major depressive disorder: Status: Acute (3) Dementia: Status: Acute DS: Medications Discharge Medications Home Medications: Home Medications Medication Instructions Recorded Confirmed donepezil 10 mg PO BEDTIME 07/11/21 07/11/21 isosorbide mononitrate 30 mg PO DAILY 07/11/21 07/11/21 lisinopril 20 mg PO DAILY 07/11/21 07/12/21 melatonin 3 mg PO BEDTIME 07/11/21 07/12/21 memantine 5 mg PO BID 07/11/21 07/11/21 rosuvastatin 10 mg PO DAILY 07/11/21 07/11/21 apixaban 5 mg PO BID 07/12/21 07/12/21 insulin glargine 16 units SUBCUT DAILY 07/12/21 07/12/21 lidocaine 5 % TRANSDERMAL USEASDIRECTD 07/12/21 07/12/21 metformin 1,000 mg PO DAILY 07/12/21 07/12/21 mirtazapine 30 mg PO BEDTIME 07/12/21 07/12/21 multivitamin See Rx Instructions .ROUTE .COMPLEX 07/12/21 07/12/21 Mental Status Exam Mental Status Exam Patient Appearance: Well Grooomed Patient Orientation: Person Level of Consciousness: Awake Patient Behavior: Cooperative Mood Description: Happy Affect Description: Constricted Patient Cognition Impaired: Yes Ability to Follow Directions: Good Speech Pattern: Clear Hallucinations: None Delusions: Not Present Thought Process: Distracted Thought Content: positive for [place] and positive for Poverty of Content Judgement: Fair Data Data Completed and Pending Completed studies during hospitalization [Text1]: 07/11/21 07/12/21 07/12/21 17:18 07:53 11:33 WBC RBC Hgb Hct MCV MCH MCHC RDW Plt Count MPV Immature Gran % (Auto) Neut % (Auto) Lymph % (Auto) [place] % (Auto) Eos % (Auto) Baso % (Auto) Lymph # (Auto) [place] # (Auto) Eos # (Auto) Baso # (Auto) Abs Immat Gran (auto) Absolute Neuts (auto) Absolute Nucleated RBC Nucleated RBC % (auto) Sodium Potassium Chloride Carbon Dioxide Anion Gap BUN Creatinine Estim Creat Clear Calc Estimated GFR POC Glucose 155 H 203 H 135 H Random Glucose Estimat Average Glucose Hemoglobin A1c % Calcium Total Bilirubin Direct Bilirubin AST ALT Alkaline Phosphatase Total Protein Albumin Triglycerides Cholesterol LDL Cholesterol, Calc HDL Cholesterol TSH 07/13/21 07/13/21 07/13/21 07:18 07:18 07:18 WBC 4.9 RBC 4.26 L Hgb 11.4 L Hct 35.1 L MCV 82.4 MCH 26.8 L MCHC 32.5 RDW 13.4 Plt Count 188 MPV 9.0 L Immature Gran % (Auto) 0.2 Neut % (Auto) 44.9 L Lymph % (Auto) 43.2 H [place] % (Auto) 9.1 Eos % (Auto) 2.2 Baso % (Auto) 0.4 Lymph # (Auto) 2.1 [place] # (Auto) 0.5 Eos # (Auto) 0.1 Baso # (Auto) 0.0 Abs Immat Gran (auto) 0.01 Absolute Neuts (auto) 2.2 Absolute Nucleated RBC 0.000 Nucleated RBC % (auto) 0.0 Sodium 138 Potassium 4.0 Chloride 104 Carbon Dioxide 26 Anion Gap 12 BUN 22 H Creatinine 1.16 Estim Creat Clear Calc 41.6 Estimated GFR > 60 POC Glucose Random Glucose 153 H Estimat Average Glucose 148 Hemoglobin A1c % 6.8 Calcium 9.4 Total Bilirubin 1.4 H Direct Bilirubin 0.6 H AST 42 H ALT 43 H Alkaline Phosphatase 58 Total Protein 6.7 Albumin 3.9 Triglycerides 93 Cholesterol 123 LDL Cholesterol, Calc 66 HDL Cholesterol 39 TSH 0.42 07/13/21 07/14/21 07/14/21 08:12 07:28 07:45 WBC RBC Hgb Hct MCV MCH MCHC RDW Plt Count MPV Immature Gran % (Auto) Neut % (Auto) Lymph % (Auto) [place] % (Auto) Eos % (Auto) Baso % (Auto) Lymph # (Auto) [place] # (Auto) Eos # (Auto) Baso # (Auto) Abs Immat Gran (auto) Absolute Neuts (auto) Absolute Nucleated RBC Nucleated RBC % (auto) Sodium Potassium Chloride Carbon Dioxide Anion Gap BUN Creatinine Estim Creat Clear Calc Estimated GFR POC Glucose 160 H 134 H Random Glucose Estimat Average Glucose Hemoglobin A1c % Calcium Total Bilirubin 1.7 H Direct Bilirubin 0.6 H AST 48 H ALT 47 H Alkaline Phosphatase 68 Total Protein 7.7 Albumin 4.5 Triglycerides Cholesterol LDL Cholesterol, Calc HDL Cholesterol TSH 07/15/21 07/15/21 07/16/21 07:10 07:54 07:45 WBC RBC Hgb Hct MCV MCH MCHC RDW Plt Count MPV Immature Gran % (Auto) Neut % (Auto) Lymph % (Auto) [place] % (Auto) Eos % (Auto) Baso % (Auto) Lymph # (Auto) [place] # (Auto) Eos # (Auto) Baso # (Auto) Abs Immat Gran (auto) Absolute Neuts (auto) Absolute Nucleated RBC Nucleated RBC % (auto) Sodium Potassium Chloride Carbon Dioxide Anion Gap BUN Creatinine Estim Creat Clear Calc Estimated GFR POC Glucose 126 H 173 H Random Glucose Estimat Average Glucose Hemoglobin A1c % Calcium Total Bilirubin 1.4 H Direct Bilirubin 0.6 H AST 36 ALT 35 Alkaline Phosphatase 63 Total Protein 7.1 Albumin 4.3 Triglycerides Cholesterol LDL Cholesterol, Calc HDL Cholesterol TSH 07/17/21 07/18/21 07:45 08:02 WBC RBC Hgb Hct MCV MCH MCHC RDW Plt Count MPV Immature Gran % (Auto) Neut % (Auto) Lymph % (Auto) [place] % (Auto) Eos % (Auto) Baso % (Auto) Lymph # (Auto) [place] # (Auto) Eos # (Auto) Baso # (Auto) Abs Immat Gran (auto) Absolute Neuts (auto) Absolute Nucleated RBC Nucleated RBC % (auto) Sodium Potassium Chloride Carbon Dioxide Anion Gap BUN Creatinine Estim Creat Clear Calc Estimated GFR POC Glucose 115 85 Random Glucose Estimat Average Glucose Hemoglobin A1c % Calcium Total Bilirubin Direct Bilirubin AST ALT Alkaline Phosphatase Total Protein Albumin Triglycerides Cholesterol LDL Cholesterol, Calc HDL Cholesterol TSH DS: Summary Hospital Course Hospital Course: The patient was admitted from our emergency room for suicidal ideation in the context of a conflict with his daughter. Please see the HPI from the admission note for further details. On admission, we found out that the patient has not been compliant with his SSRI. Also he carries a diagnosis of dementia. Since his main complaint was poor sleep, we decided to change his SSRI to Remeron titrated up to 30 mg p.o. q.h.s. to target insomnia and depression. The patient in the unit was pleasant and cooperative, but it was evident that he has poor short-term memory was very severe. I did a Upton test in [place] and he scored 8/30. even though that he had a very low score, he was able to do his ADL less and he could handle by himself stressful situations in an acceptable manner. He was seen in the common areas participating groups and socializing with peers and staff in an appropriate manner. But he was extremely confused, at times he thought he was in the voodoo, times he thought that he was in his apartment. His doctor from the [place], Dr. Taylor, called us and I informed him about the low score of the Upton. Coordination of care was discussed over the phone and the social worker palliative care arranged more ancillary services in his case. We had several family meetings and at this moment his family wants to take care of him. They were advocated for more ancillary services. The patient did not show any suicidal ideation, he stated that sometimes he expressed suicidal thoughts in the context that he is angry and frustrated but he is not truly suicidal. Even though, he has a prior history of trying to hang himself several years ago. The patient signed a 3 day notice, the patient adamantly denies suicidal ideation, his mood is much better with a brighter affect. Since there were no safety concerns discharge planning was discussed. Time spent discussing smoking cessation with patient: 3 to 10 minutes Status at Discharge Cognitive/behavioral status at discharge: Impaired, his Upton test is 8/30 in [place] Functional status at discharge: independent ambulation Overall status at discharge: patient is back to baseline Time Spent with Patient Time attestation: Total time spent providing and/or coordinating discharge services: Time spent: Greater than 30 minutes Discharge Plan Discharge Patient Disposition: Home, Self-Care Discharge Diagnosis: Major depressive disorder. Dementia Referrals: [facility] [Other] - 3-5 Days (post exchange manager Jose Pastrana ext. [phone] was notified of discharge date today 07/13/21 and services will resume from [facility] post discharge from unit.) Dr. Jameson Shook (neurologists) [Other] - 07/25/21 10:40 am (Appointment scheduled for Friday, July 25, 2021 @ 10:40 AM) [facility] [Other] - 08/07/21 11:30 am (Appt with Dr. Grigsby @ [place], Saturday, August 07, 2021 @ 11:30 AM.... IN OFFICE) Tonya Salazar MD [Primary Care Provider] - 3-5 Days (SW spoke with Yolanda Anais, she reports she called and left message at PCP scheduling office to obtain a PCP appointment. Waiting for mobile pet groomer to call her back or call RN at [facility] to provide date and time of next appointment.) Discharge Medications: New atorvastatin 40 mg Tablet 40 mg PO DAILY 30 Days Qty: 30 0RF donepezil 10 mg Tablet 10 mg PO BEDTIME 30 Days Qty: 30 0RF lisinopril 20 mg Tablet 20 mg PO DAILY 30 Days Qty: 30 0RF isosorbide mononitrate 30 mg Tablet Extended Release 24 Hr 30 mg PO DAILY 30 Days Qty: 30 0RF mirtazapine 30 mg Tablet 30 mg PO BEDTIME 30 Days Qty: 30 0RF memantine [Namenda] 10 mg Tablet 10 mg PO BID 30 Days Qty: 60 0RF Eliquis 5 mg Tablet 5 mg PO BID 30 Days Qty: 60 0RF Continued melatonin 3 mg PO BEDTIME 0RF Rx Instructions: 1 mg filled 06/12/20 insulin glargine 16 units subcut DAILY 0RF lidocaine 5 % transdermal USEASDIRECTD 0RF Rx Instructions: 12 hrs on and 12 hrs off metformin 1,000 mg PO DAILY 0RF multivitamin See Rx Instructions .ROUTE .COMPLEX 0RF Rx Instructions: Take 1 tablet by mouth once daily Discontinued donepezil 10 mg PO BEDTIME 0RF Rx Instructions: 1/2 tab for 1st 7 days and then full tab #90 given and started 05/21/21 isosorbide mononitrate 30 mg PO DAILY 0RF Rx Instructions: #90 filled 05/25/21 lisinopril 20 mg PO DAILY 0RF Rx Instructions: #90 filled 05/25/21 memantine 5 mg PO BID 0RF Rx Instructions: #180 filled 06/07/21 rosuvastatin 10 mg PO DAILY 0RF Rx Instructions: #90 filled 05/21/21 apixaban 5 mg PO BID 0RF Rx Instructions: take one-half tablet by mouth twice daily mirtazapine 30 mg PO BEDTIME 0RF Rx Instructions: take one-half tablet by mouth at bedtime Discharge Orders: Discharge Order (Routine); Ordered 07/18/21 Ordered By: Andrea Reyez Diet: advance to usual diet Activity on Discharge: As tolerated Stand Alone Forms: Patient Portal Discharge page Care Plan Goals: care plan goals achieved in this admission Health Concerns: continue treatment by primary care physician as an outpatient Plan of Treatment: continue medication management as an outpatient Assessment: elderly [place] male, bilingual with a long history of major depressive disorder and dementia that was brought into the facility for suicidal statements after an argument. At this moment, the patient is much better, able to contract for safety and willing to continue treatment as an outpatient.
--- NOTE | 2021-07-18 12:47 | PC.NURSE ---
Visible on unit, eats meals in community areas and then rests in room. Attending to adl's. Reports readiness for discharge today. Discharge plan to be reviewed with pt and daughter at time of discharge. Med education given. Alert and oriented to person and place. Denies SI/HI, denies AH/VH. Reports good sleep and appetite. Denies depression or anxiety. Belongings retrieved from safety. [facility] Edmundo Posadas 08/07/21 [id number].
== END 2021-07-18 13:15 | disposition home or self-care (01) | DRG 885 ==
PROVIDERS: Family Medicine; Psychiatry & Neurology Psychiatry; Admitting Provider Psychiatry & Neurology Psychiatry; PCP Internal Medicine; Visit Provider Psychiatry & Neurology Psychiatry
DX: F33.2 Major depressive disorder, recurrent severe without psychotic features (principal); R45.851 Suicidal ideations; I10 Essential (primary) hypertension; E11.9 Type 2 diabetes mellitus without complications; G30.9 Alzheimer's disease, unspecified; F02.80 Dementia in other diseases classified elsewhere, unspecified severity, without behavioral disturbance, psychotic disturbance, mood disturbance, and anxiety; E80.6 Other disorders of bilirubin metabolism; Z86.711 Personal history of pulmonary embolism; Z79.01 Long term (current) use of anticoagulants; Z79.899 Other long term (current) drug therapy
CPT/HCPCS: 36415; 80048; 80061; 80076; 82947; 83036; 84443; 85025